=== PATIENT | male | born 1940 | race Caucasian/White ===

== ENCOUNTER 2022-02-17 11:07 | Day surgery (SDC) | payer MEDICARE, BC ==
[~2022-02-17] VITALS: Ht 182.9 cm; Wt 82.8 kg
[2022-02-17] VITALS (9 sets, daily range): BP systolic 98–131; BP diastolic 46–78
[2022-02-17] MEDS ORDERED: diphenhydrAMINE 25mg capsule PO PRN (11:35)
[2022-02-17] MEDS ORDERED: LORazepam 0.5 MG tablet PO PRN (11:35)
[2022-02-17] MEDS ORDERED: normal saline 1,000 ML IV SCH (11:35)
[2022-02-17] MEDS ORDERED: ATOR10TA70 PO (11:44)
[2022-02-17] MEDS ORDERED: APIX5TAB3 PO (11:44)
[2022-02-17] MEDS ORDERED: FLO0.4C PO (11:44)
[2022-02-17] MEDS ORDERED: METO50TA16 PO (11:44)
[2022-02-17] MEDS ORDERED: RIVA3CAP17 PO (11:44)
[2022-02-17] MEDS ORDERED: nitroGLYCERIN-Tridil 50MG/D5W 250 ML IV ONE (11:58)
[2022-02-17] MEDS ORDERED: fentaNYL/PF 50MCG/1 ML 2ML syringe ONE (11:59)
[2022-02-17] MEDS ORDERED: midazolam 1 mg/ML 2ml injection ONE (11:59)
[2022-02-17] MEDS ORDERED: verapamil 2.5 mg/ml inj IV ONE (11:59)
[2022-02-17] MEDS ORDERED: heparin 1,000unit/ml 10ml vial 10 ML ONE (11:59)
[2022-02-17] MEDS ORDERED: iohexol 350MG/ML 100ml bottle IV ONE (11:59)
[2022-02-17] MEDS ORDERED: LIDOcaine 1%/PF 5ML 10 MG/ML VIAL ONE (11:59)
[2022-02-17] MEDS ORDERED: proCHLORperazine 10 MG/2 ml inj IV PRN (14:05)
[2022-02-17] MEDS ORDERED: ondansetron/PF 4mg/2ml inj IV PRN (14:05)
[2022-02-17 16:01] LABS: ISTAT Hct MIX 39 %PCV (42-52); ISTAT O2 SATURATION MIX VENOUS 93 % (60-80); ISTAT SOURCE ART
[2022-02-17 16:01] LABS: ISTAT Hct MIX 40 %PCV (42-52); ISTAT O2 SATURATION MIX VENOUS 72 % (60-80); ISTAT SOURCE VEN
== END 2022-02-17 17:30 | disposition home or self-care (01) ==
LOC: SSTAY O 11:07
PROVIDERS: ATTEND Student in an Organized Health Care Education/Training Program
DX: I35.0 Nonrheumatic aortic (valve) stenosis (principal); I48.91 Unspecified atrial fibrillation; Z86.73 Personal history of transient ischemic attack (TIA), and cerebral infarction without residual deficits; Z79.899 Other long term (current) drug therapy; Z98.890 Other specified postprocedural states
CPT/HCPCS: 82803; 85014; 93005; 93456; 99152; A6258; C1769; C1894; J1644; J2250; J3010; J3490; J7030; Q0163; Q9967; A4620; A5120; A6402; A6449

== ENCOUNTER 2022-09-16 10:44 | Outpatient (CLI) | payer MEDICARE, BC ==
[~2022-09-16 10:44] MED LIST: APIX5TAB3 PO; ATOR10TA70 PO; FLO0.4C PO; METO50TA16 PO; RIVA3CAP17 PO
[2022-09-16 11:15] LABS: BASOPHILS # (AUTO) 0.1 X10'3 (0-0.2); BASOPHILS % (AUTO) 1.2 % (0-1); EOSINOPHILS # (AUTO) 0.1 X10'3 (0-0.9); EOSINOPHILS % (AUTO) 1.1 % (0-6); HEMATOCRIT 42.2 % (42.0-52.0); HEMOGLOBIN 14.1 g/dl (14.0-17.9); LYMPHOCYTES # (AUTO) 1.4 X10'3 (1.1-4.8); LYMPHOCYTES % (AUTO) 18.9 % (21-51); MEAN CORPUSCULAR HGB CONC 33.4 g/dL (33.0-36.5); MEAN CORPUSCULAR VOLUME 92.7 FL (78-98); MEAN PLATELET VOLUME 7.8 FL (7.4-10.4); MONOCYTES # (AUTO) 0.8 X10'3 (0-0.9); MONOCYTES % (AUTO) 10.7 % (2-12); NEUTROPHILS # (AUTO) 5.2 X10'3 (1.8-7.7); NEUTROPHILS % (AUTO) 68.1 % (42-75); PLATELET COUNT 235 X10'3 (140-440); RED BLOOD COUNT 4.55 X10'6 (4.70-6.10); RED CELL DISTRIBUTION WIDTH 13.5 % (11.5-14.5); WHITE BLOOD COUNT 7.6 X10'3 (4.5-11.0)
[2022-09-16 11:27] LABS: APTT 29 SECONDS (22-32)
[2022-09-16 11:29] LABS: ALANINE AMINOTRANSFERASE 35 U/L (12-78); ALBUMIN 2.8 G/DL (3.4-5.0); ALBUMIN/GLOBULIN RATIO 0.8 (1.1-1.5); ALKALINE PHOSPHATASE 63 IU/L (46-116); ANION GAP 4 (8-16); ASPARTATE AMINO TRANSFERASE 23 U/L (10-37); BILIRUBIN,TOTAL 0.4 MG/DL (0.1-1.0); CALCIUM 8.7 MG/DL (8.5-10.1); CHLORIDE 103 MMOL/L (99-107); CREATININE 0.75 MG/DL (0.60-1.10); GLUCOSE 101 MG/DL (70-104); POTASSIUM 4.1 MMOL/L (3.5-5.1); SODIUM 135 MMOL/L (135-145); TOTAL CARBON DIOXIDE 28.3 MMOL/L (24-32); TOTAL PROTEIN 6.4 G/DL (6.4-8.2); eGFR > 90 ML/MIN
[2022-09-16 11:54] LABS: BLOOD UREA NITROGEN 8 MG/DL (7-18); BUN/CREATININE RATIO 10.7 (10.0-20.0)
[2022-09-17] MEDS ORDERED: IODIXANOL IV ONE (08:00)
[2022-09-17] MEDS ORDERED: NALT50TA PO (08:32)
[2022-09-17] MEDS ORDERED: ATI1T PO (08:32)
[2022-09-17] MEDS ORDERED: METO-395 PO (08:32)
[2022-09-17] MEDS ORDERED: MEMA5TAB42 PO (08:32)
[2022-09-17] MEDS ORDERED: DONE-46 PO (08:32)
[2022-09-20] MEDS ORDERED: SULF1TAB49 PO (12:15)
== END 2022-09-16 23:59 | disposition home or self-care (01) ==
LOC: RAD 10:44
PROVIDERS: ATTEND Internal Medicine Cardiovascular Disease
DX: K80.20 Calculus of gallbladder without cholecystitis without obstruction (principal); I70.0 Atherosclerosis of aorta; D18.09 Hemangioma of other sites; R94.2 Abnormal results of pulmonary function studies; I35.0 Nonrheumatic aortic (valve) stenosis; R06.02 Shortness of breath; I65.29 Occlusion and stenosis of unspecified carotid artery
CPT/HCPCS: 36415; 71046; 71275; 74174; 80053; 85025; 85610; 85730; 94010; 94727; 94729; Q9967

== ENCOUNTER 2022-10-15 14:07 | Outpatient (CLI) | payer MEDICARE, BC ==
[~2022-10-15] VITALS: Ht 182.9 cm; Wt 74.9 kg
[~2022-10-15 14:07] MED LIST changes: +ATI1T PO; +DONE-46 PO; +IODIXANOL 320 MG/ML INFUS..BTL 100ML IV ONE; +MEMA5TAB42 PO; +METO-395 PO; -METO50TA16 PO; +NALT50TA PO; -RIVA3CAP17 PO
[2022-10-15 15:05] VITALS: BP 128/77
--- NOTE | 2022-10-15 15:06 | NUR ---
Patient and Jessica were in the [facility] clinic today to consult with Dr. Oconnor, Dr. Ye Jones and Dr. Valadez. [facility]. Walk test completed. Vital signs measured. Patient education reviewed and questions answered
== END 2022-10-15 23:59 | disposition home or self-care (01) ==
LOC: TAVR 14:07
PROVIDERS: ATTEND Internal Medicine Cardiovascular Disease
DX: I35.0 Nonrheumatic aortic (valve) stenosis (principal); R06.02 Shortness of breath; I65.29 Occlusion and stenosis of unspecified carotid artery
CPT/HCPCS: J3490; Q9967